=== PATIENT | female | born 1960 | race Caucasian/White ===

== ENCOUNTER 2019-05-12 07:44 | Outpatient (CLI) | payer MEDICARE, MEDICAID ==
--- NOTE | 2019-05-12 08:17 | RAD ---
RADIOGRAPH LUMBAR SPINE 3 VIEWS: DATE: 05/12/2019. HISTORY: A 59-year-old female with low back pain, M54.5, with right lumbar radiculopathy. COMPARISON: None. TECHNIQUE: Three lateral views in flexion, extension, and neutral. FINDINGS: Vertebral body heights are maintained. No high-grade disc space narrowing at any level. Alignment i s normal. No instability between flexion and extension. Facet DJD at mid and lower levels. IMPRESSION: 1. Facet osteoarthrosis. 2. Otherwise, negative. JN [] POS: OFF
--- NOTE | 2019-05-12 09:06 | RAD ---
RADIOGRAPH CERVICAL SPINE 3 VIEWS: DATE: 05/12/2019. HISTORY: A 59-year-old female with cervicalgia, M54.2 and bilateral upper extremity paresthesia and hypesthesi a (cervical radiculopathy) R20.2. COMPARISON: None. TECHNIQUE: Three lateral views in flexion, neutral, and extension. FINDINGS: C7-T1 junction is obscured by the shoulders. Disk space narrowing is minimal at C4-5, and moderate a t C5-6 where there is end plate sclerosis and tiny posterior end plate marginal osteophytes that encr oach upon the anterior aspect of the spinal canal. The rest of the visualized disk spaces are mainta ined. Minimal, physiologic anterior translations at several levels during flexion, which reduce on e xtension and neutral. No true instability or subluxation. Prevertebral soft tissue thickness is nor mal. IMPRESSION: 1. Moderate degenerative disk disease at C5-6. 2. No instability. JN [] POS: OFF
--- NOTE | 2019-05-12 09:22 | MRI ---
MR CERVICAL SPINE WITHOUT CONTRAST INDICATION: Neck pain with bilateral arm pain and numbness TECHNIQUE: Multiplanar multisequence MR images were obtained of the cervical spine without contrast. COMPARISON: None FINDINGS: Posterior fossa: Within normal limits. Bone marrow signal intensity: Normal Spinal alignment: Normal. Craniocervical junction: Normal appearing. Prevertebral and perivertebral soft tissues: Visualized soft tissues appear within normal limits. Vertebral levels: C2-C3: No appreciable central canal or neuroforaminal narrowing. C3-4: No appreciable central canal or neuroforaminal narrowing. C4-5: No appreciable central canal or neuroforaminal narrowing. C5-C6: There is uncovertebral hypertrophy with and asymmetric to the right broad-based disc bulge and facet hypertrophy inducing moderate right neural foraminal narrowing. C6-C7:, There is a broad-based bulge with facet hypertrophy. No appreciable central canal or neural f oraminal narrowing is demonstrated. C7-T1: No appreciable central canal or neuroforaminal narrowing. IMPRESSION: 1. Mild cervical spondylosis with moderate right neural foraminal narrowing seen at C5-6.
--- NOTE | 2019-05-12 09:28 | MRI ---
MR THORACIC SPINE WITHOUT CONTRAST INDICATION: Pain. COMPARISON: None. FINDINGS: No intrinsic expansile lesion of the thoracic spinal cord identified. Vertebral body heights are maintained. No acute marrow edema. No significant subluxation. There are minimal disc osteophyte seen at multiple levels without signifi cant compromise of thecal sac contents. T1-T2: No significant stenosis. T2-3: No significant stenosis. T3-4: No significant stenosis. T4-5: No significant stenosis. T5-6: No significant stenosis. T6-7: No significant stenosis. T7-8: No significant stenosis. T8-9: No significant stenosis. T9-10: No significant stenosis. T10-11: No significant stenosis. T11-12: No significant stenosis. Incidental note of mild fluid signal localizing at the region of the pericardial recess. IMPRESSION: No significant stenosis of the thoracic spine.
--- NOTE | 2019-05-12 09:48 | MRI ---
MR the lumbar spine without contrast INDICATION: Low back pain radiating down right leg with swelling in the right lower extremity COMPARISON: None. TECHNIQUE: Multiplanar multisequence MR images were obtained of lumbar spine without IV contrast. FINDINGS: Bone marrow: Bone marrow signal intensity appears within normal limits. Distal spinal cord and conus: Normal. The conus seen to terminate at L1. Visualized retroperitoneum and paraspinal soft tissues: Normal. Vertebral levels: L5-S1: There is a mild broad-based bulge without appreciable central canal or neural foraminal narrow ing.. L4-5: There is a mild broad-based bulge with mild facet joint degenerative change but no appreciable central canal or neural foraminal narrowing. L3-4: There is a mild broad-based bulge with mild facet joint degenerative change but no appreciable central canal or neural foraminal narrowing. L2-3: No appreciable central canal or neuroforaminal narrowing. L1-L2: No appreciable central canal or neuroforaminal narrowing. T12-L1: No appreciable central canal or neuroforaminal narrowing. IMPRESSION: 1. Mild spondylosis of the lumbar spine.
== END 2019-05-12 07:45 | disposition home or self-care (01) ==
LOC: TBSIIMAG 07:44
PROVIDERS: ATTEND Neurological Surgery
DX: M54.2 Cervicalgia (principal); M54.5 Low back pain; R20.2 Paresthesia of skin; M54.6 Pain in thoracic spine; M50.322 Other cervical disc degeneration at C5-C6 level; M47.816 Spondylosis without myelopathy or radiculopathy, lumbar region; M47.812 Spondylosis without myelopathy or radiculopathy, cervical region; M48.02 Spinal stenosis, cervical region
CPT/HCPCS: 72040; 72100; 72141; 72146; 72148

== ENCOUNTER 2020-08-19 07:15 | Outpatient (CLI) | payer MEDICARE, MEDICAID | END 2020-08-19 07:16 | disposition home or self-care (01) | LOC: BICMRI 07:15 | PROVIDERS: ATTEND Orthopaedic Surgery | DX: M75.41 Impingement syndrome of right shoulder (principal); M75.101 Unspecified rotator cuff tear or rupture of right shoulder, not specified as traumatic ==

== ENCOUNTER 2020-09-05 10:07 | Outpatient (CLI) | payer MEDICARE, MEDICAID ==
[2020-09-05 11:00] LABS: #Eosinphils 0.1 10x3/uL (0.0-0.5); #Monocytes 0.6 10x3/uL (0.0-1.1); #Neutrophils 3.4 10x3/uL (1.5-8.4); %Basophils 0.7 % (0.0-2.0); %Lymphocytes 30.6 % (18.0-47.0); %Monocytes 9.4 % (0.0-10.0); Hemoglobin 13.7 g/dL (12.0-15.5); Mean Corpuscular HGB CONC 32.3 g/dL (32.0-36.0); Mean Corpuscular Hemoglobin 33.3 pg (27.0-33.0); Mean Corpuscular Volume 102.9 fl (81.6-98.3); Mean Platelet Volume 10.8 fl (7.4-10.4); Platelet Count 261 10x3/uL (150-450); RBC Distribution Width 12.1 % (11.5-14.5); Red Blood Cell (RBC) Count 4.12 10x6/uL (3.90-5.03)
[2020-09-05 11:14] LABS: Anion Gap 15 mmol/L (10-20); BUN (Urea Nitrogen) 19 mg/dL (9.8-20.1); Calc. Creatinine Clearance 0 mL/min (70-130); Calcium 9.4 mg/dL (7.8-10.44); Carbon Dioxide 23 mmol/L (23-31); Chloride 109 mmol/L (98-107); Glucose 112 mg/dL (80-115); Potassium 4.8 mmol/L (3.5-5.1); Sodium 142 mmol/L (136-145)
[2020-09-05 22:42] LABS: SARS-CoV-2 PCR by NAA Not Detected (NotDetected)
== END 2020-09-05 10:08 | disposition home or self-care (01) ==
LOC: LABBT 10:07
PROVIDERS: ATTEND Orthopaedic Surgery
DX: Z01.818 Encounter for other preprocedural examination (principal); Z20.822 Contact with and (suspected) exposure to COVID-19
CPT/HCPCS: 80048; 85025; 93005; U0003; U0005; 87635; 93010

== ENCOUNTER 2020-09-08 08:34 | Day surgery (SDC) | payer MEDICARE, MEDICAID ==
[2020-09-07 11:10] VITALS: BMI 21.6
[2020-09-08] MEDS ORDERED: Midazolam HCl 2 mg/2 ml Vial ONE (09:11)
[2020-09-08] MEDS ORDERED: Fentanyl 100 MCG/2 ML VIAL ONE ×2 (09:11→09:52)
[2020-09-08] MEDS ORDERED: Sodium Chloride 0.9% 10 ML ONE (09:12)
[2020-09-08] MEDS ORDERED: Lidocaine 2% Jelly 5 ML TUBE ONE (09:52)
[2020-09-08] MEDS ORDERED: Phenylephrine 10 MG/ML VIAL ONE (09:56)
[2020-09-08] MEDS ORDERED: EPINEPHrine 1 MG/ML AMP ONE (10:06)
[2020-09-08] MEDS ORDERED: Bupivacaine 0.25% HCL 30 ML VIAL ONE (10:06)
[2020-09-08] MEDS ORDERED: Bupivacaine HCl 0.5%/Epinephrine 1:200,000/PF 30 ml Vial ONE (10:23)
[2020-09-08] MEDS ORDERED: Glycopyrrolate 0.2 MG/ML 5 ML SYRINGE ONE (10:23)
[2020-09-08] MEDS ORDERED: Rocuronium Bromide 10 MG/ML (10ML VIAL) ONE (10:23)
[2020-09-08] MEDS ORDERED: Dexamethasone 20 MG/5 ML VIAL ONE (10:23)
[2020-09-08] MEDS ORDERED: Ondansetron PF 4 MG/2 ML Vial ONE (10:23)
[2020-09-08] MEDS ORDERED: PROPOFOL 200 MG/20 ML VIAL ONE (10:23)
[2020-09-08] MEDS ORDERED: Lidocaine 1% PF 5 ML VIAL ONE (10:23)
[2020-09-08] MEDS ORDERED: methylPREDNISolone Acetate 40 mg/ml Vial ONE (11:17)
[2020-09-08] MEDS ORDERED: Fentanyl 100 MCG/2 ML VIAL SLOW IVP PRN (11:32)
[2020-09-08] MEDS ORDERED: Ketorolac Tromethamine 30 MG/ML VIAL IVP PRN (11:45)
[2020-09-08] MEDS ORDERED: HYDROcodone/Acetaminophen 10/325 mg Tablet PO PRN ×2 (11:45)
[2020-09-08] MEDS ORDERED: Ropivacaine 0.2% 550 ML 550 ML NERVE BLCK SCH (11:45)
[2020-09-08] MEDS ORDERED: Ondansetron PF 4 MG/2 ML Vial IVP PRN (11:45)
[2020-09-08] MEDS ORDERED: traMADol HCl 50 MG TAB PO PRN ×2 (11:45)
[2020-09-08] MEDS ORDERED: Zolpidem Tartrate 5 MG TAB PO PRN (11:45)
[2020-09-08] MEDS ORDERED: Promethazine HCl 25 MG/ML VIAL IM PRN (11:45)
== END 2020-09-08 15:15 | disposition home or self-care (01) ==
LOC: SDC 08:34
PROVIDERS: ATTEND Orthopaedic Surgery
PROC: 0LQ24ZZ Repair Left Shoulder Tendon, Percutaneous Endoscopic Approach (ICD-10-PCS; principal; 2020-09-08)
PROC: 3E0T3BZ Introduction of Anesthetic Agent into Peripheral Nerves and Plexi, Percutaneous Approach (ICD-10-PCS; 2020-09-08)
DX: M75.111 Incomplete rotator cuff tear or rupture of right shoulder, not specified as traumatic (principal); M65.811 Other synovitis and tenosynovitis, right shoulder; G89.18 Other acute postprocedural pain; F41.9 Anxiety disorder, unspecified; F31.9 Bipolar disorder, unspecified; Z87.891 Personal history of nicotine dependence
CPT/HCPCS: 29827; 64416; A4306; C1713 ×2; J0171; J0690; J1100; J2250; J2370; J2405; J2704; J2795; J2920; J3010; S0020

== ENCOUNTER 2021-06-28 08:25 | Outpatient (CLI) | payer MEDICARE, MEDICAID | END 2021-06-28 08:26 | disposition home or self-care (01) | LOC: MRI 08:25 | PROVIDERS: ATTEND Nurse Practitioner Family | DX: M47.817 Spondylosis without myelopathy or radiculopathy, lumbosacral region (principal); M47.816 Spondylosis without myelopathy or radiculopathy, lumbar region | CPT/HCPCS: 72148 ==

== ENCOUNTER 2021-08-09 15:45 | Inpatient (IN) | payer MEDICARE, MEDICAID ==
[~2021-08-09 15:45] MED LIST: Iopamidol 370 76% 100 ML VIAL ONE; Metoprolol Tartrate 5 MG/5 ML VIAL ONE; Nitroglycerin 50 MG/250 ML BOT ONE
[2021-08-09] MEDS ORDERED: Fentanyl 100 MCG/2 ML VIAL ONE (15:50)
[2021-08-09] MEDS ORDERED: Fentanyl 250 MCG/5 ML VIAL ONE (16:15)
[2021-08-09] MEDS ORDERED: Midazolam HCl 2 mg/2 ml Vial ONE (16:15)
[2021-08-09 16:16] LABS: #Eosinphils 0.1 thou/uL (0.0-0.7); #Lymphocytes 2.7 thou/uL (1.20-3.40); #Monocytes 0.5 thou/uL (0.11-0.59); #Neutrophils 6.7 thou/uL (1.40-6.50); %Basophils 0.3 % (0.0-1.0); %Eosinophils 0.8 % (0.0-10.0); %Lymphocytes 27.3 % (21.0-51.0); %Monocytes 4.9 % (0.0-10.0); %Neutrophils 66.8 % (42.0-75.0); Hemoglobin 14.9 g/dL (12.0-16.0); Mean Corpuscular HGB CONC 32.9 g/dL (32.0-36.0); Mean Platelet Volume 8.7 fL (7.4-10.4); Platelet Count 176 thou/uL (130-400); RBC Distribution Width 10.9 % (11.5-14.5); Red Blood Cell (RBC) Count 4.39 mill/uL (4.20-5.40)
[2021-08-09 16:25] LABS: INR-International Normal Ratio 1.1; Prothrombin Time 13.8 sec (12.0-14.7)
[2021-08-09 16:31] LABS: PTT 233.4 sec (22.9-36.1)
[2021-08-09 16:32] LABS: ALT (SGPT) 9 U/L (8-55); AST (SGOT) 17 U/L (5-34); Albumin 4.2 g/dL (3.4-4.8); Alkaline Phosphatase 90 U/L (40-110); Anion Gap 19 mmol/L (10-20); BUN (Urea Nitrogen) 18 mg/dL (9.8-20.1); Bilirubin, Total 0.6 mg/dL (0.2-1.2); Calc. Creatinine Clearance 0 mL/min (70-130); Calcium 9.1 mg/dL (7.8-10.44); Carbon Dioxide 16 mmol/L (23-31); Chloride 108 mmol/L (98-107); Globulin 3.4 g/dL (2.4-3.5); Glucose 134 mg/dL (80-115); Potassium 5.1 mmol/L (3.5-5.1); Protein, Total 7.6 g/dL (5.8-8.1); Sodium 138 mmol/L (136-145)
[2021-08-09] MEDS ORDERED: Clopidogrel Bisulfate 300 MG TAB ONE (16:40)
[2021-08-09] MEDS ORDERED: Nitroglycerin 0.4 MG TAB (25 Tab Bottle) SL PRN (16:56)
[2021-08-09] MEDS ORDERED: Morphine 4 MG/ML VIAL SLOW IVP PRN (16:56)
[2021-08-09] MEDS ORDERED: Sodium Chloride 0.9% 1,000 ML IV SCH (17:00)
[2021-08-09] MEDS ORDERED: Nitroglycerin 50 MG/250 ML BOT 250 ML IVPB SCH (18:00)
[2021-08-09] MEDS: Morphine 4 MG/ML VIAL SLOW IVP PRN ×2 (18:41→22:33)
[2021-08-09 18:49] VITALS: BMI 24.5
[2021-08-09 21:00] LABS: SARS-CoV-2 NAA Rapid Test Not Detected (NotDetected)
[2021-08-09] MEDS ORDERED: Atorvastatin Calcium 40 MG TAB PO SCH (21:00)
[2021-08-09 23:11] LABS: CKMB 108.1 ng/mL (0-6.6)
[2021-08-10 03:57] LABS: #Lymphocytes 1.5 thou/uL (1.20-3.40); #Monocytes 0.5 thou/uL (0.11-0.59); #Neutrophils 5.7 thou/uL (1.40-6.50); %Basophils 0.5 % (0.0-1.0); %Eosinophils 0.1 % (0.0-10.0); %Lymphocytes 19.6 % (21.0-51.0); %Monocytes 6.4 % (0.0-10.0); %Neutrophils 73.4 % (42.0-75.0); Mean Corpuscular HGB CONC 34.1 g/dL (32.0-36.0); Mean Corpuscular Hemoglobin 35.3 pg (27.0-31.0); Mean Platelet Volume 8.3 fL (7.4-10.4); Platelet Count 216 thou/uL (130-400); Red Blood Cell (RBC) Count 3.68 mill/uL (4.20-5.40); White Blood Cell (WBC) Count 7.8 thou/uL (4.8-10.8)
[2021-08-10 04:20] LABS: ALT (SGPT) 16 U/L (8-55); AST (SGOT) 75 U/L (5-34); Albumin 3.6 g/dL (3.4-4.8); Alkaline Phosphatase 68 U/L (40-110); Anion Gap 11 mmol/L (10-20); BUN (Urea Nitrogen) 13 mg/dL (9.8-20.1); Bilirubin, Total 0.9 mg/dL (0.2-1.2); Calc. Creatinine Clearance 81 mL/min (70-130); Calcium 8.5 mg/dL (7.8-10.44); Carbon Dioxide 20 mmol/L (23-31); Cardiac Risk 3.4 (Less than 4.5); Chloride 109 mmol/L (98-107); Cholesterol 208 mg/dl (< 200 Desired); Globulin 2.3 g/dL (2.4-3.5); Glucose 122 mg/dL (80-115); HDL Cholesterol 62 mg/dL (>60 Neg Risk); LDL Cholesterol, Calculated 134 mg/dL; Potassium 4.3 mmol/L (3.5-5.1); Protein, Total 5.9 g/dL (5.8-8.1); Sodium 136 mmol/L (136-145); Triglycerides 58 mg/dL (Less than 150)
[2021-08-10 04:28] LABS: Troponin I 19.425 ng/mL (< 0.028)
[2021-08-10] MEDS: Aspirin 81 mg Enteric Coated Tablet PO SCH (09:31)
[2021-08-10] MEDS: Clopidogrel Bisulfate 75 MG TAB PO SCH (09:31)
[2021-08-10] MEDS: Propranolol 10 MG TAB PO SCH ×3 (09:31→20:28)
[2021-08-10] MEDS ORDERED: Ondansetron PF 4 MG/2 ML Vial IVP PRN (09:33)
[2021-08-10] MEDS ORDERED: HumaLOG 300 UNITS/3 ML VIAL SC PRN (09:43)
[2021-08-10] MEDS ORDERED: Dextrose 50% Abboject 50 ML SYRINGE SLOW IVP PRN (09:43)
[2021-08-10] MEDS ORDERED: Dextrose 5% in Water 1,000 ML IV PRN (09:43)
[2021-08-10] MEDS: Morphine 4 MG/ML VIAL SLOW IVP PRN (20:43)
[2021-08-10] MEDS ORDERED: Atorvastatin Calcium 40 MG TAB PO SCH (21:00)
[2021-08-11 09:06] LABS: #Lymphocytes 1.7 thou/uL (1.20-3.40); #Monocytes 0.6 thou/uL (0.11-0.59); #Neutrophils 4.2 thou/uL (1.40-6.50); %Basophils 0.2 % (0.0-1.0); %Eosinophils 0.3 % (0.0-10.0); %Lymphocytes 26.5 % (21.0-51.0); %Monocytes 8.5 % (0.0-10.0); %Neutrophils 64.5 % (42.0-75.0); Hemoglobin 13.8 g/dL (12.0-16.0); Mean Corpuscular HGB CONC 34.1 g/dL (32.0-36.0); Mean Corpuscular Hemoglobin 35.3 pg (27.0-31.0); Mean Platelet Volume 8.4 fL (7.4-10.4); Platelet Count 212 thou/uL (130-400); RBC Distribution Width 10.9 % (11.5-14.5); Red Blood Cell (RBC) Count 3.91 mill/uL (4.20-5.40); White Blood Cell (WBC) Count 6.6 thou/uL (4.8-10.8)
[2021-08-11 09:24] LABS: Anion Gap 15 mmol/L (10-20); BUN (Urea Nitrogen) 14 mg/dL (9.8-20.1); Calc. Creatinine Clearance 62 mL/min (70-130); Calcium 9.4 mg/dL (7.8-10.44); Carbon Dioxide 23 mmol/L (23-31); Chloride 106 mmol/L (98-107); Glucose 101 mg/dL (80-115); Potassium 3.9 mmol/L (3.5-5.1); Sodium 140 mmol/L (136-145)
[2021-08-11] MEDS: Aspirin 81 mg Enteric Coated Tablet PO SCH (09:30)
[2021-08-11] MEDS: Clopidogrel Bisulfate 75 MG TAB PO SCH (09:30)
[2021-08-11] MEDS: Propranolol 10 MG TAB PO SCH ×2 (09:30→14:37)
[2021-08-11] MEDS ORDERED: Acetaminophen 325 MG TAB PO PRN (12:21)
[2021-08-11 12:42] VITALS: BP 114/66; TEMP 98.7
[2021-08-11] MEDS ORDERED: Pantoprazole 40 MG VIAL IVP SCH (13:00)
[2021-08-12] MEDS ORDERED: Pantoprazole 40 MG VIAL IVP SCH (09:00)
== END 2021-08-11 15:30 | disposition home or self-care (01) | DRG 249 ==
LOC: ERS 15:45 → CCU 16:03 → CCL 16:05 → ERHOLD 16:23 → CCU 18:21 → 2NO 08-10 17:57
PROVIDERS: ADMIT Internal Medicine Cardiovascular Disease; ATTEND Internal Medicine Cardiovascular Disease
PROC: 02703DZ Dilation of Coronary Artery, One Artery with Intraluminal Device, Percutaneous Approach (ICD-10-PCS; principal; 2021-08-09)
PROC: 4A023N7 Measurement of Cardiac Sampling and Pressure, Left Heart, Percutaneous Approach (ICD-10-PCS; 2021-08-09)
PROC: B2111ZZ Fluoroscopy of Multiple Coronary Arteries using Low Osmolar Contrast (ICD-10-PCS; 2021-08-09)
DX: I21.11 ST elevation (STEMI) myocardial infarction involving right coronary artery (principal); Z20.822 Contact with and (suspected) exposure to COVID-19; F17.210 Nicotine dependence, cigarettes, uncomplicated; F31.9 Bipolar disorder, unspecified; R25.1 Tremor, unspecified; I25.10 Atherosclerotic heart disease of native coronary artery without angina pectoris; E78.00 Pure hypercholesterolemia, unspecified; Z79.899 Other long term (current) drug therapy
CPT/HCPCS: 36415; 36416; 80048; 80053; 80061; 82553; 84484; 85025; 85347; 85610; 85730; 92928; 93005; 93010; 93306; 93798; 96365; 96368; 96375; 99152; C1876; C9113; C9600; J1644; J2250; J2270; J3010; J7050; Q9967; U0002

== ENCOUNTER 2021-09-15 09:40 | Outpatient (CLI) | payer MEDICARE, MEDICAID | END 2021-09-15 09:41 | disposition home or self-care (01) | LOC: LABBT 09:40 | PROVIDERS: ATTEND Thoracic Surgery (Cardiothoracic Vascular Surgery) | DX: Z01.812 Encounter for preprocedural laboratory examination (principal); Z20.822 Contact with and (suspected) exposure to COVID-19 | CPT/HCPCS: 80048; 85025; 86850; 86900; 86901; U0003; U0005 ==

== ENCOUNTER 2021-10-18 11:38 | Inpatient (IN) | payer MEDICARE, MEDICAID ==
[2021-10-18 12:04] LABS: #Eosinphils 0.3 thou/uL (0.0-0.7); #Lymphocytes 1.3 thou/uL (1.20-3.40); #Monocytes 0.8 thou/uL (0.11-0.59); #Neutrophils 8.9 thou/uL (1.40-6.50); %Basophils 0.1 % (0.0-1.0); %Eosinophils 2.6 % (0.0-10.0); %Lymphocytes 11.1 % (21.0-51.0); %Monocytes 7.5 % (0.0-10.0); %Neutrophils 78.7 % (42.0-75.0); Hemoglobin 12.4 g/dL (12.0-16.0); Mean Corpuscular HGB CONC 33.5 g/dL (32.0-36.0); Mean Corpuscular Hemoglobin 34.1 pg (27.0-31.0); Mean Platelet Volume 8.1 fL (7.4-10.4); Platelet Count 270 thou/uL (130-400); RBC Distribution Width 11.8 % (11.5-14.5); Red Blood Cell (RBC) Count 3.64 mill/uL (4.20-5.40); White Blood Cell (WBC) Count 11.3 thou/uL (4.8-10.8)
[2021-10-18 12:28] LABS: ALT (SGPT) 7 U/L (8-55); AST (SGOT) 10 U/L (5-34); Albumin 4.4 g/dL (3.4-4.8); Alkaline Phosphatase 144 U/L (40-110); Anion Gap 13 mmol/L (10-20); BUN (Urea Nitrogen) 17 mg/dL (9.8-20.1); Calc. Creatinine Clearance 0 mL/min (70-130); Calcium 9.7 mg/dL (7.8-10.44); Carbon Dioxide 22 mmol/L (23-31); Chloride 104 mmol/L (98-107); Globulin 2.9 g/dL (2.4-3.5); Glucose 136 mg/dL (80-115); Lipase 21 U/L (8-78); Potassium 4.5 mmol/L (3.5-5.1); Protein, Total 7.3 g/dL (5.8-8.1); Sodium 134 mmol/L (136-145)
[2021-10-18] MEDS ORDERED: Fentanyl 100 MCG/2 ML VIAL ONE (12:33)
[2021-10-18] MEDS ORDERED: Ondansetron PF 4 MG/2 ML Vial ONE (12:33)
[2021-10-18] MEDS ORDERED: clonazePAM 0.5 MG TAB PO PRN (14:50)
[2021-10-18] MEDS ORDERED: Ondansetron PF 4 MG/2 ML Vial IVP PRN (14:53)
[2021-10-18] MEDS ORDERED: Colchicine 0.6 MG TAB PO SCH (15:00)
[2021-10-18] MEDS ORDERED: Pantoprazole 40 MG VIAL IVP SCH (15:00)
[2021-10-18] MEDS ORDERED: Fentanyl 100 MCG/2 ML VIAL SLOW IVP PRN (15:10)
[2021-10-18] MEDS: HYDROcodone/Acetaminophen 5/325 mg Tablet PO PRN (15:59)
[2021-10-18] MEDS: Nitroglycerin 0.4 MG TAB (25 Tab Bottle) SL PRN ×2 (16:01→16:19)
[2021-10-18] MEDS: Gabapentin 100 MG CAP PO SCH ×2 (16:08→21:04)
[2021-10-18] MEDS: Cefepime 2 GM in Sodium Chloride 0.9% 100 ML IVPB SCH (16:09)
[2021-10-18 16:11] LABS: Troponin I Less than 0.010 ng/mL (< 0.028)
[2021-10-18] MEDS ORDERED: Morphine 4 MG/ML VIAL SLOW IVP PRN (16:18)
[2021-10-18 19:58] LABS: Troponin I 0.013 ng/mL (< 0.028)
[2021-10-18] MEDS ORDERED: Famotidine 20 MG TAB PO SCH (21:00)
[2021-10-18] MEDS: Colchicine 0.6 MG TAB PO SCH (21:04)
[2021-10-18] MEDS: Atorvastatin Calcium 40 MG TAB PO SCH (21:04)
[2021-10-18] MEDS: Vancomycin 1 GM in Premix Bag 1 BAG IVPB SCH (21:07)
[2021-10-18] MEDS: Acetaminophen 325 MG TAB PO PRN (23:23)
[2021-10-19 00:12] LABS: SARS-CoV-2 PCR by NAA Not Detected (NotDetected)
[2021-10-19] MEDS ORDERED: Sodium Chloride 0.9% 500 ML IV SCH ×2 (03:45→04:30)
[2021-10-19] MEDS: Acetaminophen 325 MG TAB PO PRN ×2 (03:59→07:44)
[2021-10-19] MEDS: Cefepime 2 GM in Sodium Chloride 0.9% 100 ML IVPB SCH ×2 (04:19→18:01)
[2021-10-19 04:40] LABS: #Eosinphils 0.1 thou/uL (0.0-0.7); #Lymphocytes 1.2 thou/uL (1.20-3.40); #Monocytes 1.2 thou/uL (0.11-0.59); #Neutrophils 9.4 thou/uL (1.40-6.50); %Basophils 0.2 % (0.0-1.0); %Eosinophils 0.7 % (0.0-10.0); %Lymphocytes 10.2 % (21.0-51.0); %Monocytes 9.8 % (0.0-10.0); %Neutrophils 79.2 % (42.0-75.0); Hemoglobin 10.7 g/dL (12.0-16.0); Mean Corpuscular HGB CONC 33.7 g/dL (32.0-36.0); Mean Corpuscular Hemoglobin 34.5 pg (27.0-31.0); Platelet Count 197 thou/uL (130-400); RBC Distribution Width 11.8 % (11.5-14.5); White Blood Cell (WBC) Count 11.9 thou/uL (4.8-10.8)
[2021-10-19] MEDS: Sodium Chloride 0.9% 1,000 ML IV SCH ×2 (04:55→14:26)
[2021-10-19 04:57] LABS: Lactic Acid 0.9 mmol/L (0.5-2.2)
[2021-10-19 05:01] LABS: Anion Gap 13 mmol/L (10-20); BUN (Urea Nitrogen) 13 mg/dL (9.8-20.1); Calc. Creatinine Clearance 64 mL/min (70-130); Calcium 8.4 mg/dL (7.8-10.44); Carbon Dioxide 18 mmol/L (23-31); Chloride 107 mmol/L (98-107); Glucose 122 mg/dL (80-115); Potassium 3.5 mmol/L (3.5-5.1); Sodium 134 mmol/L (136-145)
[2021-10-19] MEDS ORDERED: Norepinephrine 8 MG/0.9% NS 250 ML IVPB SCH (05:45)
[2021-10-19] MEDS ORDERED: Norepinephrine 8 MG/0.9% NS 0 ML ONE ×2 (05:52→05:54)
[2021-10-19] MEDS ORDERED: Norepinephrine 8 MG/0.9% NS 250 ML ONE (05:57)
[2021-10-19] MEDS ORDERED: Clopidogrel Bisulfate 75 MG TAB PO SCH (09:00)
[2021-10-19] MEDS: Vancomycin 1 GM in Premix Bag 1 BAG IVPB SCH ×3 (09:24→21:29)
[2021-10-19] MEDS: Pantoprazole 40 MG VIAL IVP SCH (09:26)
[2021-10-19] MEDS: Aspirin 81 mg Enteric Coated Tablet PO SCH (09:27)
[2021-10-19] MEDS: Gabapentin 100 MG CAP PO SCH ×3 (09:27→20:13)
[2021-10-19] MEDS: Colchicine 0.6 MG TAB PO SCH ×2 (09:27→20:13)
[2021-10-19] MEDS: Enoxaparin Sodium 40 MG/0.4 ML SYRINGE SC SCH (09:28)
[2021-10-19] MEDS ORDERED: Sodium Chloride 0.9% 1,000 ML IV SCH (11:00)
[2021-10-19] MEDS: HYDROcodone/Acetaminophen 5/325 mg Tablet PO PRN ×2 (13:45→19:24)
[2021-10-19] MEDS: Atorvastatin Calcium 40 MG TAB PO SCH (20:13)
[2021-10-19 20:27] LABS: Vancomycin, Trough 13.4 ug/mL
[2021-10-20] MEDS: Sodium Chloride 0.9% 1,000 ML IV SCH ×3 (00:34→10:02)
[2021-10-20] MEDS: Cefepime 2 GM in Sodium Chloride 0.9% 100 ML IVPB SCH ×2 (04:02→16:33)
[2021-10-20 04:07] LABS: Anion Gap 12 mmol/L (10-20); BUN (Urea Nitrogen) 8 mg/dL (9.8-20.1); Calc. Creatinine Clearance 85 mL/min (70-130); Calcium 8.2 mg/dL (7.8-10.44); Carbon Dioxide 14 mmol/L (23-31); Chloride 112 mmol/L (98-107); Glucose 84 mg/dL (80-115); Sodium 134 mmol/L (136-145)
[2021-10-20] MEDS: Acetaminophen 325 MG TAB PO PRN (04:32)
[2021-10-20 06:25] LABS: #Eosinphils 0.2 thou/uL (0.0-0.7); #Lymphocytes 0.8 thou/uL (1.20-3.40); #Monocytes 0.5 thou/uL (0.11-0.59); #Neutrophils 6.6 thou/uL (1.40-6.50); %Basophils 0.1 % (0.0-1.0); %Eosinophils 2.8 % (0.0-10.0); %Lymphocytes 9.5 % (21.0-51.0); %Monocytes 6.5 % (0.0-10.0); %Neutrophils 81.1 % (42.0-75.0); Hemoglobin 9.5 g/dL (12.0-16.0); Mean Corpuscular HGB CONC 33.4 g/dL (32.0-36.0); Mean Corpuscular Hemoglobin 34.5 pg (27.0-31.0); Mean Platelet Volume 8.5 fL (7.4-10.4); Platelet Count 159 thou/uL (130-400); RBC Distribution Width 11.9 % (11.5-14.5); Red Blood Cell (RBC) Count 2.74 mill/uL (4.20-5.40); White Blood Cell (WBC) Count 8.1 thou/uL (4.8-10.8)
[2021-10-20] MEDS: Propranolol 10 MG TAB PO SCH ×5 (10:00→21:55)
[2021-10-20] MEDS: Gabapentin 100 MG CAP PO SCH ×3 (10:00→20:49)
[2021-10-20] MEDS: Bupropion 150 MG XL TAB PO SCH (10:00)
[2021-10-20] MEDS: Enoxaparin Sodium 40 MG/0.4 ML SYRINGE SC SCH (10:01)
[2021-10-20] MEDS: Pantoprazole 40 MG VIAL IVP SCH (10:02)
[2021-10-20] MEDS: Aspirin 81 mg Enteric Coated Tablet PO SCH (10:02)
[2021-10-20] MEDS: Vancomycin 1 GM in Premix Bag 1 BAG IVPB SCH ×2 (10:02→20:58)
[2021-10-20] MEDS ORDERED: Ondansetron HCl/PF 8 MG in Sodium Chloride 0.9% 50 ML IVPB PRN (15:09)
[2021-10-20] MEDS: Loperamide HCl 2 MG CAP PO PRN ×2 (15:22→17:37)
[2021-10-20] MEDS: Atorvastatin Calcium 40 MG TAB PO SCH (20:50)
[2021-10-20] MEDS: HYDROcodone/Acetaminophen 5/325 mg Tablet PO PRN (21:57)
[2021-10-21] MEDS: Cefepime 2 GM in Sodium Chloride 0.9% 100 ML IVPB SCH ×2 (04:07→18:33)
[2021-10-21 04:19] LABS: Hemoglobin 8.9 g/dL (12.0-16.0); Mean Corpuscular HGB CONC 32.7 g/dL (32.0-36.0); Mean Corpuscular Hemoglobin 34.6 pg (27.0-31.0); Mean Platelet Volume 8.3 fL (7.4-10.4); Platelet Count 177 thou/uL (130-400); RBC Distribution Width 11.8 % (11.5-14.5); Red Blood Cell (RBC) Count 2.56 mill/uL (4.20-5.40); White Blood Cell (WBC) Count 5.6 thou/uL (4.8-10.8)
[2021-10-21] MEDS: Sodium Chloride 0.9% 1,000 ML IV SCH (04:20)
[2021-10-21 04:29] LABS: Anion Gap 13 mmol/L (10-20); BUN (Urea Nitrogen) 7 mg/dL (9.8-20.1); Calc. Creatinine Clearance 83 mL/min (70-130); Calcium 8.3 mg/dL (7.8-10.44); Carbon Dioxide 17 mmol/L (23-31); Chloride 112 mmol/L (98-107); Glucose 88 mg/dL (80-115); Potassium 3.6 mmol/L (3.5-5.1); Sodium 138 mmol/L (136-145)
[2021-10-21 04:41] LABS: #Basophils 0.1 thou/uL (0.0-0.2); #Eosinphils 0.6 thou/uL (0.0-0.7); #Monocytes 0.6 thou/uL (0.11-0.59); #Neutrophils 3.4 thou/uL (1.40-6.50); %Basophils 0.9 % (0.0-1.0); %Eosinophils 9.8 % (0.0-10.0); %Lymphocytes 17.9 % (21.0-51.0); %Monocytes 11.3 % (0.0-10.0); %Neutrophils 60.1 % (42.0-75.0)
[2021-10-21] MEDS: HYDROcodone/Acetaminophen 5/325 mg Tablet PO PRN ×2 (07:42→19:46)
[2021-10-21] MEDS: Enoxaparin Sodium 40 MG/0.4 ML SYRINGE SC SCH (08:25)
[2021-10-21] MEDS: Bupropion 150 MG XL TAB PO SCH (08:27)
[2021-10-21] MEDS: Aspirin 81 mg Enteric Coated Tablet PO SCH (08:27)
[2021-10-21] MEDS: Gabapentin 100 MG CAP PO SCH ×3 (08:27→20:41)
[2021-10-21] MEDS: Pantoprazole 40 MG VIAL IVP SCH (08:28)
[2021-10-21] MEDS: Propranolol 10 MG TAB PO SCH ×3 (08:29→20:41)
[2021-10-21 08:39] LABS: Vancomycin, Trough 19.4 ug/mL
[2021-10-21] MEDS: Vancomycin 1 GM in Premix Bag 1 BAG IVPB SCH (09:37)
[2021-10-21] MEDS: Atorvastatin Calcium 40 MG TAB PO SCH (20:40)
[2021-10-22 04:35] LABS: #Eosinphils 0.5 thou/uL (0.0-0.7); #Monocytes 0.4 thou/uL (0.11-0.59); #Neutrophils 1.7 thou/uL (1.40-6.50); %Basophils 0.8 % (0.0-1.0); %Eosinophils 12.4 % (0.0-10.0); %Lymphocytes 28.2 % (21.0-51.0); %Monocytes 12.1 % (0.0-10.0); %Neutrophils 46.4 % (42.0-75.0); Hemoglobin 8.9 g/dL (12.0-16.0); Mean Corpuscular HGB CONC 33.2 g/dL (32.0-36.0); Mean Corpuscular Hemoglobin 33.9 pg (27.0-31.0); Mean Platelet Volume 9.4 fL (7.4-10.4); Platelet Count 181 thou/uL (130-400); RBC Distribution Width 11.8 % (11.5-14.5); Red Blood Cell (RBC) Count 2.61 mill/uL (4.20-5.40); White Blood Cell (WBC) Count 3.7 thou/uL (4.8-10.8)
[2021-10-22 04:45] LABS: Anion Gap 13 mmol/L (10-20); BUN (Urea Nitrogen) 7 mg/dL (9.8-20.1); Calc. Creatinine Clearance 85 mL/min (70-130); Calcium 8.4 mg/dL (7.8-10.44); Carbon Dioxide 17 mmol/L (23-31); Chloride 112 mmol/L (98-107); Glucose 92 mg/dL (80-115); Potassium 3.6 mmol/L (3.5-5.1); Sodium 138 mmol/L (136-145)
[2021-10-22] MEDS: Cefepime 2 GM in Sodium Chloride 0.9% 100 ML IVPB SCH (06:47)
[2021-10-22] MEDS: HYDROcodone/Acetaminophen 5/325 mg Tablet PO PRN ×2 (08:30→17:01)
[2021-10-22] MEDS: Aspirin 81 mg Enteric Coated Tablet PO SCH (08:32)
[2021-10-22] MEDS: Bupropion 150 MG XL TAB PO SCH (08:32)
[2021-10-22] MEDS: Gabapentin 100 MG CAP PO SCH ×3 (08:33→20:21)
[2021-10-22] MEDS: Propranolol 10 MG TAB PO SCH ×3 (08:34→20:21)
[2021-10-22] MEDS: Enoxaparin Sodium 40 MG/0.4 ML SYRINGE SC SCH (08:36)
[2021-10-22] MEDS: Pantoprazole 40 MG VIAL IVP SCH (08:37)
[2021-10-22] MEDS: Oxacillin 2 GM in Sodium Chloride 0.9% 100 ML IVPB SCH ×3 (15:07→23:31)
[2021-10-22] MEDS: Atorvastatin Calcium 40 MG TAB PO SCH (20:21)
[2021-10-23] MEDS: Oxacillin 2 GM in Sodium Chloride 0.9% 100 ML IVPB SCH ×5 (03:26→20:44)
[2021-10-23] MEDS: HYDROcodone/Acetaminophen 5/325 mg Tablet PO PRN (03:27)
[2021-10-23 04:27] LABS: #Eosinphils 0.4 thou/uL (0.0-0.7); #Lymphocytes 1.1 thou/uL (1.20-3.40); #Monocytes 0.4 thou/uL (0.11-0.59); #Neutrophils 1.8 thou/uL (1.40-6.50); %Basophils 0.6 % (0.0-1.0); %Eosinophils 11.2 % (0.0-10.0); %Monocytes 10.7 % (0.0-10.0); %Neutrophils 47.6 % (42.0-75.0); Hemoglobin 9.1 g/dL (12.0-16.0); Mean Corpuscular HGB CONC 33.3 g/dL (32.0-36.0); Mean Corpuscular Hemoglobin 34.1 pg (27.0-31.0); Mean Platelet Volume 8.5 fL (7.4-10.4); Platelet Count 209 thou/uL (130-400); RBC Distribution Width 11.9 % (11.5-14.5); Red Blood Cell (RBC) Count 2.67 mill/uL (4.20-5.40); White Blood Cell (WBC) Count 3.8 thou/uL (4.8-10.8)
[2021-10-23 04:49] LABS: Anion Gap 13 mmol/L (10-20); BUN (Urea Nitrogen) 9 mg/dL (9.8-20.1); Calc. Creatinine Clearance 76 mL/min (70-130); Calcium 8.5 mg/dL (7.8-10.44); Carbon Dioxide 18 mmol/L (23-31); Chloride 110 mmol/L (98-107); Glucose 104 mg/dL (80-115); Potassium 3.2 mmol/L (3.5-5.1); Sodium 138 mmol/L (136-145)
[2021-10-23] MEDS ORDERED: Electrolyte Replacement Protocol 1 EACH FS SCH (08:15)
[2021-10-23] MEDS ORDERED: Potassium Chloride 10 MEQ in Premix Bag 1 BAG IVPB SCH ×3 (08:30→11:00)
[2021-10-23] MEDS: Propranolol 10 MG TAB PO SCH ×3 (08:56→20:45)
[2021-10-23] MEDS: Pantoprazole 40 MG VIAL IVP SCH (09:15)
[2021-10-23] MEDS: Bupropion 150 MG XL TAB PO SCH (09:15)
[2021-10-23] MEDS: Gabapentin 100 MG CAP PO SCH ×3 (09:15→20:45)
[2021-10-23] MEDS: Enoxaparin Sodium 40 MG/0.4 ML SYRINGE SC SCH (09:15)
[2021-10-23] MEDS: Aspirin 81 mg Enteric Coated Tablet PO SCH (09:15)
[2021-10-23] MEDS ORDERED: Midazolam HCl 2 mg/2 ml Vial ONE (09:33)
[2021-10-23] MEDS ORDERED: Fentanyl 100 MCG/2 ML VIAL ONE (09:33)
[2021-10-23] MEDS ORDERED: Neomycin-Polymyxin 1 ML AMP ONE (09:34)
[2021-10-23] MEDS ORDERED: Glycopyrrolate 0.2 MG/ML 5 ML SYRINGE ONE (10:17)
[2021-10-23] MEDS ORDERED: Ondansetron PF 4 MG/2 ML Vial ONE (10:17)
[2021-10-23] MEDS ORDERED: PROPOFOL 200 MG/20 ML VIAL ONE (10:17)
[2021-10-23] MEDS ORDERED: Metoclopramide HCl 10 MG/2 ML VIAL ONE (10:17)
[2021-10-23] MEDS ORDERED: Rocuronium Bromide 10 MG/ML (10ML VIAL) ONE (10:17)
[2021-10-23] MEDS ORDERED: HYDROcodone/Acetaminophen 5/325 mg Tablet PO PRN (12:14)
[2021-10-23] MEDS ORDERED: Sodium Chloride 0.9% 1,000 ML IV SCH (12:14)
[2021-10-23] MEDS: Atorvastatin Calcium 40 MG TAB PO SCH (20:45)
[2021-10-24] MEDS: Oxacillin 2 GM in Sodium Chloride 0.9% 100 ML IVPB SCH ×6 (00:56→21:21)
[2021-10-24 04:57] LABS: #Eosinphils 0.4 thou/uL (0.0-0.7); #Lymphocytes 1.1 thou/uL (1.20-3.40); #Monocytes 0.4 thou/uL (0.11-0.59); #Neutrophils 1.3 thou/uL (1.40-6.50); %Basophils 0.1 % (0.0-1.0); %Eosinophils 11.8 % (0.0-10.0); %Lymphocytes 34.4 % (21.0-51.0); %Neutrophils 40.7 % (42.0-75.0); Hemoglobin 8.7 g/dL (12.0-16.0); Mean Corpuscular HGB CONC 33.1 g/dL (32.0-36.0); Mean Corpuscular Hemoglobin 33.8 pg (27.0-31.0); Mean Platelet Volume 8.4 fL (7.4-10.4); Platelet Count 222 thou/uL (130-400); RBC Distribution Width 12.1 % (11.5-14.5); Red Blood Cell (RBC) Count 2.56 mill/uL (4.20-5.40); White Blood Cell (WBC) Count 3.3 thou/uL (4.8-10.8)
[2021-10-24 05:16] LABS: Anion Gap 11 mmol/L (10-20); BUN (Urea Nitrogen) 6 mg/dL (9.8-20.1); Calc. Creatinine Clearance 85 mL/min (70-130); Calcium 8.2 mg/dL (7.8-10.44); Carbon Dioxide 19 mmol/L (23-31); Chloride 111 mmol/L (98-107); Glucose 110 mg/dL (80-115); Potassium 3.4 mmol/L (3.5-5.1); Sodium 138 mmol/L (136-145)
[2021-10-24] MEDS ORDERED: Magnesium 2 GM/50 ML(in water) 2 GM in Premix Bag 1 BAG IVPB SCH (05:45)
[2021-10-24] MEDS ORDERED: Potassium Chloride 20 MEQ TAB PO SCH (05:45)
[2021-10-24] MEDS: Aspirin 81 mg Enteric Coated Tablet PO SCH (09:58)
[2021-10-24] MEDS: Propranolol 10 MG TAB PO SCH ×3 (09:59→21:20)
[2021-10-24] MEDS: Gabapentin 100 MG CAP PO SCH ×3 (09:59→21:20)
[2021-10-24] MEDS: Bupropion 150 MG XL TAB PO SCH (09:59)
[2021-10-24] MEDS: Enoxaparin Sodium 40 MG/0.4 ML SYRINGE SC SCH (10:00)
[2021-10-24] MEDS: Polyethylene Glycol 3350 17 GM Packet PO SCH (10:06)
[2021-10-24] MEDS: Atorvastatin Calcium 40 MG TAB PO SCH (21:22)
[2021-10-24] MEDS: HYDROcodone/Acetaminophen 5/325 mg Tablet PO PRN (21:27)
[2021-10-25] MEDS: Oxacillin 2 GM in Sodium Chloride 0.9% 100 ML IVPB SCH ×6 (02:35→20:37)
[2021-10-25 04:54] LABS: #Eosinphils 0.3 thou/uL (0.0-0.7); #Lymphocytes 1.3 thou/uL (1.20-3.40); #Monocytes 0.4 thou/uL (0.11-0.59); #Neutrophils 1.2 thou/uL (1.40-6.50); %Basophils 0.6 % (0.0-1.0); %Eosinophils 9.3 % (0.0-10.0); %Lymphocytes 40.9 % (21.0-51.0); %Monocytes 12.7 % (0.0-10.0); %Neutrophils 36.5 % (42.0-75.0); Hemoglobin 8.4 g/dL (12.0-16.0); Mean Corpuscular HGB CONC 33.5 g/dL (32.0-36.0); Mean Corpuscular Hemoglobin 34.2 pg (27.0-31.0); Mean Platelet Volume 8.4 fL (7.4-10.4); Platelet Count 240 thou/uL (130-400); RBC Distribution Width 12.3 % (11.5-14.5); Red Blood Cell (RBC) Count 2.46 mill/uL (4.20-5.40); White Blood Cell (WBC) Count 3.2 thou/uL (4.8-10.8)
[2021-10-25 05:18] LABS: Anion Gap 10 mmol/L (10-20); BUN (Urea Nitrogen) 10 mg/dL (9.8-20.1); Calc. Creatinine Clearance 80 mL/min (70-130); Calcium 8.3 mg/dL (7.8-10.44); Carbon Dioxide 22 mmol/L (23-31); Chloride 112 mmol/L (98-107); Glucose 100 mg/dL (80-115); Potassium 3.3 mmol/L (3.5-5.1); Sodium 141 mmol/L (136-145)
[2021-10-25] MEDS ORDERED: Potassium Chloride 20 MEQ TAB PO SCH ×2 (05:45→13:45)
[2021-10-25 09:00] LABS: Magnesium 1.8 mg/dL (1.6-2.6)
[2021-10-25] MEDS ORDERED: MULTIVIT/IRON SULF/FOLIC ACID 1 EACH TAB PO SCH (09:00)
[2021-10-25] MEDS ORDERED: Magnesium 2 GM/50 ML(in water) 2 GM in Premix Bag 1 BAG IVPB SCH ×2 (09:15)
[2021-10-25] MEDS: Aspirin 81 mg Enteric Coated Tablet PO SCH (09:46)
[2021-10-25] MEDS: Bupropion 150 MG XL TAB PO SCH (09:46)
[2021-10-25] MEDS: Propranolol 10 MG TAB PO SCH ×3 (09:46→20:36)
[2021-10-25] MEDS: Gabapentin 100 MG CAP PO SCH ×3 (09:47→20:36)
[2021-10-25] MEDS: Multivit, Therapeutic 1 TAB PO SCH (09:47)
[2021-10-25] MEDS: Enoxaparin Sodium 40 MG/0.4 ML SYRINGE SC SCH (09:47)
[2021-10-25] MEDS: Polyethylene Glycol 3350 17 GM Packet PO SCH (09:48)
[2021-10-25] MEDS ORDERED: Furosemide 20 MG TAB PO SCH (13:45)
[2021-10-25 15:59] LABS: SARS-CoV-2 PCR by NAA Not Detected (NotDetected)
[2021-10-25] MEDS: Atorvastatin Calcium 40 MG TAB PO SCH (20:36)
[2021-10-26] MEDS: Oxacillin 2 GM in Sodium Chloride 0.9% 100 ML IVPB SCH ×3 (00:49→09:20)
[2021-10-26] MEDS: HYDROcodone/Acetaminophen 5/325 mg Tablet PO PRN (04:02)
[2021-10-26 04:36] LABS: #Eosinphils 0.4 thou/uL (0.0-0.7); #Lymphocytes 1.4 thou/uL (1.20-3.40); #Monocytes 0.5 thou/uL (0.11-0.59); #Neutrophils 2.2 thou/uL (1.40-6.50); %Basophils 0.2 % (0.0-1.0); %Eosinophils 9.4 % (0.0-10.0); %Lymphocytes 30.7 % (21.0-51.0); %Monocytes 10.9 % (0.0-10.0); %Neutrophils 48.9 % (42.0-75.0); Hemoglobin 8.7 g/dL (12.0-16.0); Mean Corpuscular HGB CONC 33.2 g/dL (32.0-36.0); Mean Corpuscular Hemoglobin 33.9 pg (27.0-31.0); Mean Platelet Volume 8.3 fL (7.4-10.4); Platelet Count 280 thou/uL (130-400); RBC Distribution Width 12.6 % (11.5-14.5); Red Blood Cell (RBC) Count 2.56 mill/uL (4.20-5.40); White Blood Cell (WBC) Count 4.4 thou/uL (4.8-10.8)
[2021-10-26 05:01] LABS: Anion Gap 12 mmol/L (10-20); BUN (Urea Nitrogen) 6 mg/dL (9.8-20.1); Calc. Creatinine Clearance 84 mL/min (70-130); Calcium 8.5 mg/dL (7.8-10.44); Carbon Dioxide 22 mmol/L (23-31); Chloride 110 mmol/L (98-107); Glucose 100 mg/dL (80-115); Potassium 3.3 mmol/L (3.5-5.1); Sodium 141 mmol/L (136-145)
[2021-10-26] MEDS ORDERED: Potassium Chloride 20 MEQ TAB PO SCH (06:30)
[2021-10-26 08:58] VITALS: BMI 23.6
[2021-10-26] MEDS ORDERED: Saccharomyces boulardii 250 MG CAP PO SCH (09:00)
[2021-10-26] MEDS: Aspirin 81 mg Enteric Coated Tablet PO SCH (09:20)
[2021-10-26] MEDS: Gabapentin 100 MG CAP PO SCH (09:20)
[2021-10-26] MEDS: Enoxaparin Sodium 40 MG/0.4 ML SYRINGE SC SCH (09:20)
[2021-10-26] MEDS: Bupropion 150 MG XL TAB PO SCH (09:20)
[2021-10-26] MEDS: Polyethylene Glycol 3350 17 GM Packet PO SCH (09:21)
[2021-10-26] MEDS: Multivit, Therapeutic 1 TAB PO SCH (09:21)
[2021-10-26] MEDS: Propranolol 10 MG TAB PO SCH (09:21)
[2021-10-26] MEDS ORDERED: ceFAZolin (BATCH) 2 GM in Premix Bag 1 BAG IVPB SCH (12:00)
[2021-10-26 12:06] VITALS: BP 124/57; TEMP 97.7
== END 2021-10-26 14:22 | disposition home or self-care (01) | DRG 856 ==
LOC: ERS 11:38 → 2SW 14:45 → CCU 10-19 05:56 → OBSVTOIN 10-19 09:11 → 2NO 10-21 11:12
PROVIDERS: ADMIT Internal Medicine; ATTEND Internal Medicine
PROC: 3E03329 Introduction of Other Anti-infective into Peripheral Vein, Percutaneous Approach (ICD-10-PCS; principal; 2021-10-18)
PROC: 3E033XZ Introduction of Vasopressor into Peripheral Vein, Percutaneous Approach (ICD-10-PCS; 2021-10-18)
PROC: 0P900ZZ Drainage of Sternum, Open Approach (ICD-10-PCS; 2021-10-19)
PROC: 02HV33Z Insertion of Infusion Device into Superior Vena Cava, Percutaneous Approach (ICD-10-PCS; 2021-10-26)
PROC: B5181ZA Fluoroscopy of Superior Vena Cava using Low Osmolar Contrast, Guidance (ICD-10-PCS; 2021-10-26)
PROC: B548ZZA Ultrasonography of Superior Vena Cava, Guidance (ICD-10-PCS; 2021-10-26)
DX: T81.41XA Infection following a procedure, superficial incisional surgical site, initial encounter (principal); A41.01 Sepsis due to Methicillin susceptible Staphylococcus aureus; R65.21 Severe sepsis with septic shock; E87.1 Hypo-osmolality and hyponatremia; Z20.822 Contact with and (suspected) exposure to COVID-19; T81.44XA Sepsis following a procedure, initial encounter; E87.6 Hypokalemia; I25.10 Atherosclerotic heart disease of native coronary artery without angina pectoris; E83.42 Hypomagnesemia; F31.9 Bipolar disorder, unspecified; F17.210 Nicotine dependence, cigarettes, uncomplicated; F41.9 Anxiety disorder, unspecified; D53.9 Nutritional anemia, unspecified; N18.2 Chronic kidney disease, stage 2 (mild); I97.0 Postcardiotomy syndrome; Y83.8 Other surgical procedures as the cause of abnormal reaction of the patient, or of later complication, without mention of misadventure at the time of the procedure; I25.2 Old myocardial infarction; Z95.1 Presence of aortocoronary bypass graft; Z95.5 Presence of coronary angioplasty implant and graft; Z71.6 Tobacco abuse counseling; Z79.899 Other long term (current) drug therapy; Z79.82 Long term (current) use of aspirin; Z98.890 Other specified postprocedural states
CPT/HCPCS: 36415; 36569; 71045; 71275; 74174; 80048; 80053; 80202; 82533; 83605; 83690; 83735; 84484; 85025; 86850; 86900; 86901; 87040; 87070; 87077; 87149; 87186; 87205; 93005; 93306; 93798; 94760; 96374; 96375; 96376; C1751; C9113; G0378; J0690; J0692; J1650; J2250; J2270; J2405; J2700; J2704; J2765; J3010; J3370; J3475; J3480; J3490; J7030; J7050; U0003; U0005

== ENCOUNTER 2021-10-28 02:30 | Emergency (ER) | payer MEDICARE, MEDICAID | END 2021-10-28 03:53 | disposition home or self-care (01) | LOC: ERS 02:30 | DX: T85.698A Other mechanical complication of other specified internal prosthetic devices, implants and grafts, initial encounter (principal); F17.200 Nicotine dependence, unspecified, uncomplicated | CPT/HCPCS: 99283 ==

== ENCOUNTER 2021-11-09 09:07 | Outpatient (CLI) | payer MEDICARE, MEDICAID | END 2021-11-09 09:08 | disposition home or self-care (01) | LOC: RAD 09:07 | PROVIDERS: ATTEND Thoracic Surgery (Cardiothoracic Vascular Surgery) | DX: I24.0 Acute coronary thrombosis not resulting in myocardial infarction (principal) | CPT/HCPCS: 71046 ==

== ENCOUNTER 2023-05-25 10:23 | Observation (INO) | payer MEDICARE, MEDICAID ==
[2023-05-25] MEDS ORDERED: Aspirin Chewable 81 MG TAB ONE (11:18)
[2023-05-25 11:40] LABS: #Eosinphils 0.1 thou/uL (0.0-0.7); #Monocytes 0.5 thou/uL (0.11-0.59); #Neutrophils 2.7 thou/uL (1.40-6.50); %Basophils 0.4 % (0.0-1.0); %Eosinophils 1.8 % (0.0-10.0); %Lymphocytes 33.5 % (21.0-51.0); %Monocytes 9.7 % (0.0-10.0); %Neutrophils 54.4 % (42.0-75.0); Hematocrit 42.9 % (36.0-47.0); Hemoglobin 14.4 g/dL (12.0-16.0); Mean Corpuscular HGB CONC 33.6 g/dL (32.0-36.0); Mean Corpuscular Hemoglobin 33.5 pg (27.0-31.0); Mean Corpuscular Volume 99.8 fl (78.0-98.0); Mean Platelet Volume 11.1 fL (7.4-10.4); Platelet Count 181 10x3/uL (130-400); RBC Distribution Width 12.6 % (11.5-14.5)
[2023-05-25 11:56] LABS: ALT (SGPT) 11 U/L (8-55); AST (SGOT) 17 U/L (5-34); Albumin 4.6 g/dL (3.4-4.8); Alkaline Phosphatase 69 U/L (40-110); Anion Gap 14 mmol/L (10-20); BUN (Urea Nitrogen) 12 mg/dL (9.8-20.1); Bilirubin, Total 0.8 mg/dL (0.2-1.2); Calc. Creatinine Clearance 0 mL/min (70-130); Calcium 9.9 mg/dL (7.8-10.44); Carbon Dioxide 22 mmol/L (23-31); Chloride 108 mmol/L (98-107); Estimated GFR 69; Globulin 2.7 g/dL (2.4-3.5); Glucose 85 mg/dL (80-115); Lipase 35 U/L (8-78); Potassium 4.4 mmol/L (3.5-5.1); Protein, Total 7.3 g/dL (5.8-8.1); Sodium 140 mmol/L (136-145)
[2023-05-25 12:00] LABS: Troponin I Less than 0.010 ng/mL (< 0.028)
[2023-05-25] MEDS ORDERED: clonazePAM 0.5 MG TAB PO PRN (12:40)
[2023-05-25] MEDS ORDERED: Nitroglycerin 0.4 MG TAB (25 Tab Bottle) SL PRN (12:41)
[2023-05-25] MEDS ORDERED: Aspirin 325 MG TAB PO SCH (12:45)
[2023-05-25] MEDS ORDERED: Acetaminophen 500 MG TAB ONE (13:18)
[2023-05-25 13:22] VITALS: BMI 20.7
[2023-05-25] MEDS ORDERED: Ondansetron PF 4 MG/2 ML Vial IVP PRN (15:05)
[2023-05-25] MEDS ORDERED: FLU VACC QS2023-24(6MOS UP)/PF 60 MCG/0.5 ML SYRINGE IM ONE (15:15)
[2023-05-25 15:46] LABS: Troponin I Less than 0.010 ng/mL (< 0.028)
[2023-05-25] MEDS: Propranolol 10 MG TAB PO SCH ×2 (16:42→21:26)
[2023-05-25 18:56] LABS: Troponin I Less than 0.010 ng/mL (< 0.028)
[2023-05-25] MEDS ORDERED: Atorvastatin Calcium 40 MG TAB PO SCH (21:00)
[2023-05-26] MEDS: Propranolol 10 MG TAB PO SCH (08:40)
[2023-05-26] MEDS ORDERED: Aspirin 81 mg Enteric Coated Tablet PO SCH (09:00)
[2023-05-26] MEDS ORDERED: BuPROPion XL 150 MG ER.TAB PO SCH (09:00)
[2023-05-26] MEDS ORDERED: Fioricet 325/50/40 mg Tablet PO PRN (09:04)
[2023-05-26 12:07] VITALS: BP 120/71; TEMP 97.6
[2023-05-26] MEDS ORDERED: ADENOSINE 60 MG/20 ML SDV ONE (12:16)
== END 2023-05-26 14:14 | disposition home or self-care (01) ==
LOC: ERS 10:23 → ERHOLD 12:18 → 2SE 14:51
PROVIDERS: ADMIT Internal Medicine; ATTEND Internal Medicine
DX: I25.10 Atherosclerotic heart disease of native coronary artery without angina pectoris (principal); F17.210 Nicotine dependence, cigarettes, uncomplicated; F31.9 Bipolar disorder, unspecified; R25.1 Tremor, unspecified; Z95.1 Presence of aortocoronary bypass graft; Z79.899 Other long term (current) drug therapy
CPT/HCPCS: 71045; 78452; 80053; 83690; 84484 ×2; 85025; 85379; 93005; 93017; 94760; 96374; 99285; A9502; G0378 ×3; 36415; J0153; J2405

== ENCOUNTER 2024-05-08 13:09 | Outpatient (CLI) | payer OTHER, MEDICAID | END 2024-05-08 13:10 | disposition home or self-care (01) | LOC: BICMAMMO 13:09 | DX: Z12.31 Encounter for screening mammogram for malignant neoplasm of breast (principal) | CPT/HCPCS: 77063; 77067 ==

== ENCOUNTER 2024-06-08 08:59 | Outpatient (CLI) | payer OTHER, MEDICAID | END 2024-06-08 09:00 | disposition home or self-care (01) | LOC: MRI 08:59 | DX: R51.9 Headache, unspecified (principal) | CPT/HCPCS: 70551 ==

== ENCOUNTER 2024-06-12 10:52 | Outpatient (CLI) | payer OTHER, MEDICAID | END 2024-06-12 10:53 | disposition home or self-care (01) | LOC: RAD 10:52 | DX: M25.531 Pain in right wrist (principal) ==